=== PATIENT | male | born 1940 | race Caucasian/White ===

== ENCOUNTER → 2023-12-29 14:00 | Outpatient (REF) | payer OTHER, SELFPAY | LOC: HWRAD 14:00 | PROVIDERS: ATTENDING PHYSICIAN Nurse Practitioner Family | DX: M18.10 Unilateral primary osteoarthritis of first carpometacarpal joint, unspecified hand (principal) | CPT/HCPCS: 77080 ==

== ENCOUNTER 2024-03-25 05:14 | Emergency (ER) | payer OTHER, SELFPAY ==
[2024-03-25 05:22] VITALS: BP 146/74
[2024-03-25 05:27] VITALS: BMI 24.2
[2024-03-25 07:03] LABS: Urine Albumin Negative (Neg - Trace); Urine Bilirubin Negative (Negative); Urine Character Clear (Clear); Urine Color Yellow; Urine Glucose Negative (Negative); Urine Ketone Negative (Negative); Urine Leukocyte 1+ (Negative); Urine Nitrite Positive (Negative); Urine Occult Blood Negative (Negative); Urine Urobilinogen Negative (Neg - 1+)
--- NOTE | 2024-03-25 07:05 | ED.GENMED ---
History of Present Illness
General
Chief Complaint: Urinary Symptoms
Time Seen by Provider: 03/25/24 06:24
History of Present Illness
History of Present Illness:
83-year-old male with history of hyperlipidemia and BPH presenting to the emergency department for concern of hematuria. Patient reports at 4 AM this morning he urinated, and at the end of his stream noticed blood. Reports history of urinary tract
infections in the past and has had hematuria in the past, however felt that this incident was more than usual. He is not on any blood thinners. He denies any associated pain or back pain. Denies chest pain or difficulty breathing. Denies recent
fever or illness. Denies additional acute medical complaints
Phy Exam
Physical Exam
Physical Exam:
General: Well-appearing, no clinical signs of dehydration, nontoxic and in no acute distress
HEENT: protecting airway
Neck: appears supple
CV: Normal heart rate, regular rhythm
Resp: No accessory muscle use, no increased work of breathing, lungs clear to auscultation bilaterally
Abd: Soft and non-distended, no tenderness to palpation
Extremities: No deformities, no swelling
Neuro: alert, no focal neurologic deficit
: deferred
Rectal: deferred
Psych: Normal affect
Skin: Intact
Course
Orders/Labs/Results
Orders:
Orders
03/25/24 05:38
Urinalysis Reflex To Culture Urgent
Date Specimen was Collected: 03/25/24
Time Specimen was Collected: 05:36
Urine Microscopic Reflex Cult Urgent
Urine Culture Urgent
ANTHONY Source: U
Specimen Description:
Date Specimen was Collected: 03/25/24
Time Specimen was Collected: 05:36
03/25/24 07:21
Cephalexin Monohydrate [Keflex] 500 mg PO NOW STA
Abnormal Lab Results
03/25/24
05:38
Urine Nitrite (Reflex) Positive A
(Negative)
Leukocyte Esterase Rfl 1+ A
(Negative)
Vital Signs
Initial and Last Documented VS:
Initial Vital Signs
Temp Pulse Resp BP Pulse Ox
97.5 F 74 20 146/74 97
03/25/24 05:22 03/25/24 05:22 03/25/24 05:22 03/25/24 05:22 03/25/24 05:22
Last Documented Vital Signs
Temp Pulse Resp BP Pulse Ox
97.5 F 74 20 146/74 97
03/25/24 05:22 03/25/24 05:22 03/25/24 05:22 03/25/24 05:22 03/25/24 05:22
MDM/Problems Addressed
MDM/Problems Addressed:
83-year-old male with history of hyperlipidemia presenting for concern of hematuria. Vital signs on arrival are normal.
On exam patient is well-appearing, no acute distress or discomfort. Overall benign examination, no tenderness to the abdomen or back. Patient has history of UTI, suspect possible developing UTI. At this time, without concern for severe hematuria.
Patient reports that he urinated here, without additional episode of hematuria. He is not on any anticoagulation. Without concern for kidney stone, no pain. Will send urinalysis and continue to closely monitor.
07:20 -patient's urine is consistent with urinary tract infection, has nitrites. At this time patient remains hemodynamically stable. Will start patient on antibiotics. Otherwise feel stable for discharge with outpatient primary care follow-up.
Return precautions discussed with patient verbalized understanding
*Critical Care Note
Total Time (30-74mins, 75-104mins- exclusive of procedures): Not Applicable
ED Attending Note
-
Portions of this chart may have been created with voice recognition software.� Occasional wrong word or��sound alike� substitutions may have occurred due to the inherent limitations of voice recognition software.
Discharge Plan
Departure
Prescriptions:
No Action
tamsulosin 0.4 mg Capsule
0.4 mg PO DAILY
rosuvastatin 5 mg Tablet
5 mg PO DAILY
Prostate Formula Tablet
1 tab PO BID
coQ10 (ubiquinol) 200 mg Capsule
200 mg PO DAILY
testosterone 1.62 % (20.25 mg/1.25 gram) Gel In Packet
20.25 mg topical DAILY
aspirin 81 mg Capsule
81 mg PO DAILY
Referrals:
Orin Shin NP [Family Provider] -
Interventions
Interventions:
*Risk Screen - Suicide Last Done: 03/25/24 05:15
*General Assessment Last Done: 03/25/24 05:27
*Neglect/Abuse Screening Last Done: 03/25/24 05:15
*ED COVID-19 Vaccine History Last Done: 03/25/24 05:27
ED-Male Genitourinary Assessment Last Done: 03/25/24 05:28
Discharge Date and Time
Print Language: YAKUT
[2024-03-25 07:25] LABS: Urine Red Blood Cell None Seen /HPF (0-2)
[2024-03-25 07:26] LABS: Urine Bacteria Moderate (Negative)
[2024-03-25] MEDS: KEFLEX 500 MG PO (07:26)
[2024-03-25 07:31] VITALS: BP 133/60
== END 2024-03-25 07:52 | disposition home or self-care (01) ==
LOC: EMR 05:14
PROVIDERS: Emergency Medicine; EMERGENCY PHYSICIAN Student in an Organized Health Care Education/Training Program; FAMILY PHYSICIAN Nurse Practitioner Family
DX: N39.0 Urinary tract infection, site not specified (principal); E78.5 Hyperlipidemia, unspecified; N40.0 Benign prostatic hyperplasia without lower urinary tract symptoms
CPT/HCPCS: 99283; 81003; 81015; 87086

== ENCOUNTER 2024-04-08 18:14 | Emergency (ER) | payer OTHER, SELFPAY ==
[2024-04-08 18:16] VITALS: BP 139/65
[2024-04-08 18:50] VITALS: BP 130/54
[2024-04-08 18:58] VITALS: BP 145/51
[2024-04-08 19:00] VITALS: BP 126/72
[2024-04-08 19:06] LABS: Hematocrit 37.5 % (39.0-52.0); Hemoglobin 13.1 g/dL (13.0-18.0); Mean Corp Hgb Conc. 34.9 g/dL (33.0-37.0); Mean Corpuscular Hgb 31.6 pg (27.0-31.0); Mean Corpuscular Volume 90.6 fL (80.0-94.0); Mean Platelet Volume 11.6 fL (7.4-10.4); Platelet Count 188 10^3/uL (130-400); Red Blood Cell Count 4.14 10^6/uL (4.70-6.10); Red Cell Dist. Width 13.3 % (11.5-14.5); White Blood Cell Count 5.5 10^3/uL (4.8-10.8)
--- NOTE | 2024-04-08 19:12 | ED.GENMED ---
History of Present Illness
General
Chief Complaint: Heart Rate Problem
Source: patient and spouse
Time Seen by Provider: 04/08/24 18:25
History of Present Illness
History of Present Illness:
83-year-old male presents the emergency department after getting alert from his watch that his heart rate was elevated at about 137. This lasted about 10 minutes and then resolved completely. Interestingly, he was asymptomatic at the time with the
exception of mild diaphoresis. He denies any chest pain or pressure, dyspnea, nausea, vomiting, headache, dizziness, back pain, neck pain, abdominal pain, or other complaints throughout the day except he notes a few episodes today where he felt
like his chest was 'buzzing' for a few seconds at a time. He is never experienced this before. Patient is now asymptomatic.
Past History
Past History
ED Past Medical History: Hypercholesterolemia
Social History
Tobacco: Former smoker
Alcohol: None
Drug: None
Personal:
Living: with family
Phy Exam
Physical Exam
Physical Exam:
GENERAL: Alert , in no apparent distress
EYE: pupils equal and reactive
NECK: Supple, no significant adenopathy.
ENT: o/p clr, mmm.
CARDIAC: Regular rate and rhythm .
LUNGS: Clear breath sounds bilaterally, no acute respiratory distress, no wheezes/rales/rhonchi
ABDOMEN: Soft, without focal tenderness, no r/g, no cvat
NEUROLOGICAL: Alert and oriented, no focal neuro deficits
SKIN: Warm and dry, skin intact.
MUSCULOSKELETAL: No edema, well perfused.
PSYCH: Normal and appropriate interaction.
Course
Orders/Labs/Results
Orders:
Orders
04/08/24 18:15
EKG [Electrocardiogram (*1)] Urgent
Reason for Study: Chest Pain
EKG- Treatment ONCE
04/08/24 19:00
Complete Blood Count/No Diff Urgent
Comprehensive Metabolic Panel Urgent
TSH Urgent
Troponin I Urgent
Abnormal Lab Results
04/08/24
19:00
RBC 4.14 L 10^6/uL
(4.70-6.10)
Hct 37.5 L %
(39.0-52.0)
MCH 31.6 H pg
(27.0-31.0)
MPV 11.6 H fL
(7.4-10.4)
BUN 30 H mg/dl
(9-20)
TSH 5.28 H uIU/ml
(0.47-4.68)
04/08/24 19:00
04/08/24 19:00
Vital Signs
Initial and Last Documented VS:
Initial Vital Signs
Temp Pulse Resp BP Pulse Ox
98.2 F 73 18 139/65 96
04/08/24 18:16 04/08/24 18:16 04/08/24 18:16 04/08/24 18:16 04/08/24 18:16
Last Documented Vital Signs
Temp Pulse Resp BP Pulse Ox
98.2 F 59 14 112/47 97
04/08/24 18:16 04/08/24 20:45 04/08/24 20:45 04/08/24 20:00 04/08/24 20:45
*Critical Care Note
Total Time (30-74mins, 75-104mins- exclusive of procedures): Not Applicable
Update Note
Update Note:
Patient presents to the Emergency Department with elevated heart rate as per watch____
Number and Complexity of Problems Addressed at the Encounter
� Chronic conditions affecting care:
� Acute Exacerbation and/or Progression of Chronic Illness:
� Differential Diagnosis includes: But not limited to sinus tachycardia, SVT, A-fib, a flutter, etc. etc.
Amount and/or Complexity of Data to be Reviewed and Analyzed
� I performed an independent evaluation of and my interpretation is:
EKG: Read by me, normal sinus rhythm, left bundle branch block which is old, no acute ischemia and
CT:
Xrays:
Laboratory Studies:
Generally unremarkable, TSH noted to be slightly elevated which I suspect is not related to his symptoms but patient made aware
Other:
� Review of other/old records reveals:
� Clinical information was obtained by an independent historian: who is bedside
� Prescriptions/Medications Considered but not given:
� Further testing considered but not performed:
Risk of Complications and/or Morbidity or Mortality of Patient Management
� Social determinants of health affecting care:
� Discussion with other providers (PCP, Hospitalists, Consultants, etc):
� Escalation of care including admission/observation vs risk of discharge considered: 9:07 PM patient remains asymptomatic here, no tachycardia or other abnormalities noted on telemetry. Patient will be discharged home with
instructions for close follow-up with cardiology will likely need to monitor.
ED Attending Note
-
Portions of this chart may have been created with voice recognition software.� Occasional wrong word or��sound alike� substitutions may have occurred due to the inherent limitations of voice recognition software.
Discharge Plan
Departure
Patient Disposition: Home (Routine Discharge)
Date of Disposition: 04/08/24
Time of Disposition: 21:04
Patient with high blood pressure during this ER visit?: Yes
Condition: Good
Discharge Problem:
Tachycardia
Instructions: Tachycardia, BLOOD PRESSURE
Prescriptions:
No Action
tamsulosin 0.4 mg Capsule
0.4 mg PO DAILY
rosuvastatin 5 mg Tablet
5 mg PO DAILY
Prostate Formula Tablet
1 tab PO BID
coQ10 (ubiquinol) 200 mg Capsule
200 mg PO DAILY
testosterone 1.62 % (20.25 mg/1.25 gram) Gel In Packet
20.25 mg topical DAILY
aspirin 81 mg Capsule
81 mg PO DAILY
cephalexin 500 mg capsule
500 mg PO BID 7 Days Qty: 14 0RF
Referrals:
Orin Shin NP [Family Provider] -
Ashlyn Napier DO [Active] - Next open appointment
Activity Restrictions/Additional Instructions:
IF YOU DEVELOP CHEST PAIN, TROUBLE BREATHING, DIZZINESS, PALPITATIONS, OR OTHER WORRISOME SIGNS, GO TO THE ER IMMEDIATELY!
Interventions
Interventions:
*Risk Screen - Suicide Last Done: 04/08/24 18:16
*Neglect/Abuse Screening Last Done: 04/08/24 18:16
ED- Fall Risk Assessment Last Done: 04/08/24 19:05
ED- Cardiac Assessment Last Done: 04/08/24 19:05
ED- Pulmonary Assessment Last Done: 04/08/24 19:05
Discharge Date and Time
Print Language: URDU
[2024-04-08 19:20] LABS: ALT (SGPT) 24 U/L (0-50); AST (SGOT) 28 U/L (17-59); Albumin 3.7 g/dl (3.5-5.0); Alkaline Phosphatase 52 U/L (38-126); Blood Urea Nitrogen 30 mg/dl (9-20); Calcium 9.1 mg/dl (8.4-10.2); Carbon Dioxide 30 mmol/L (22-30); Chloride 104 mmol/L (98-107); Glucose 87 mg/dl (70-99); Potassium 4.5 mmol/L (3.5-5.1); Sodium 142 mmol/L (135-145); Total Bilirubin 0.6 mg/dl (0.2-1.3); Total Protein 6.3 g/dl (6.3-8.2); eGFR > 60.00
[2024-04-08 19:39] LABS: Troponin I < 0.012 ng/ml
[2024-04-08 19:51] LABS: TSH 5.28 uIU/ml (0.47-4.68)
[2024-04-08 20:00] VITALS: BP 112/47
== END 2024-04-08 21:11 | disposition home or self-care (01) ==
LOC: EMR 18:14
PROVIDERS: EMERGENCY PHYSICIAN Emergency Medicine; FAMILY PHYSICIAN Nurse Practitioner Family
DX: R00.0 Tachycardia, unspecified (principal); E78.00 Pure hypercholesterolemia, unspecified; Z87.891 Personal history of nicotine dependence; I44.7 Left bundle-branch block, unspecified
CPT/HCPCS: 99284; 80053; 84443; 84484; 85027; 93005

== ENCOUNTER 2024-04-12 21:04 | Emergency (ER) | payer OTHER, SELFPAY ==
[2024-04-12 21:07] VITALS: BP 149/64
[2024-04-12 21:19] VITALS: BMI 23.9
[2024-04-12 21:44] LABS: Urine Albumin Trace (Neg - Trace); Urine Bilirubin Negative (Negative); Urine Character Slightly Cloudy (Clear); Urine Color Yellow; Urine Glucose Negative (Negative); Urine Ketone Negative (Negative); Urine Leukocyte 2+ (Negative); Urine Nitrite Positive (Negative); Urine Occult Blood 4+ (Negative); Urine Urobilinogen Negative (Neg - 1+)
[2024-04-12 22:00] LABS: Urine Bacteria Few (Negative); Urine Red Blood Cell 30-40 /HPF (0-2); Urine White Cell 50-60 /HPF (0-5)
--- NOTE | 2024-04-12 22:13 | ED.GENMED ---
History of Present Illness
General
Chief Complaint: Urinary Symptoms
Source: patient
Exam Limitations: none
Time Seen by Provider: 04/12/24 21:22
Nursing documentation reviewed up to this point in time: agreed with
History of Present Illness
History of Present Illness:
Patient presents ED secondary to recurrent hematuria, along with passage of small blood clots this evening. Denies difficulty voiding or inability to void. Denies fever or chills. Denies nausea or vomiting. Denies abdominal pain. Patient was
evaluated in ED for similar complaint 2 weeks ago, and successfully treated with antibiotics. Of note, patient has had history of enlarged prostate, noted on MRI obtained 2 years ago.
Past History
Past History
ED Past Medical History: Hypercholesterolemia
Social History
Tobacco: Former smoker
Alcohol: None
Drug: None
Personal:
Living: with family
Review of Systems
Review of Systems
Allergies reviewed?: Yes
All Other Systems: ROS reviewed and negative except as documented in HPI and ROS
Constitutional: Reports no symptoms; Denies fever
ABD/GI: Reports no symptoms; Denies abdominal pain, nausea or vomiting
: Reports bleeding; Denies dysuria, frequency, flank pain or difficulty voiding
Musculoskeletal: Reports no symptoms
Skin: Reports no symptoms
Neurological: Reports no symptoms
Phy Exam
Physical Exam
Physical Exam:
Physical Exam
General: no apparent distress, not acutely ill. afebrile
Head: nc/at. eomi
Neck: supple. no meningeal signs.
Abdomen: normal bowel sounds. not tender.
Neuro: alert and oriented. no focal neurological deficits
Skin: no rash
Psychiatric: well kept. interactive and cooperative
Extremities: no edema. no calf tenderness.
Course
Orders/Labs/Results
Orders:
Orders
04/12/24 21:37
Urinalysis Reflex To Culture Urgent
Date Specimen was Collected: 04/12/24
Time Specimen was Collected: 21:11
Urine Microscopic Reflex Cult Urgent
Urine Culture Urgent
ANTHONY Source: U
Specimen Description:
Date Specimen was Collected: 04/12/24
Time Specimen was Collected: 21:11
04/12/24 22:13
LevoFLOXacin [Levaquin] 500 mg PO NOW STA
Abnormal Lab Results
04/12/24
21:37
Ur Occult Blood Reflex 4+ A
(Negative)
Urine Nitrite (Reflex) Positive A
(Negative)
Leukocyte Esterase Rfl 2+ A
(Negative)
Urine RBC 30-40 A /HPF
(0-2)
Urine WBC (Reflex) 50-60 A /HPF
(0-5)
Urine Bacteria (Reflex) Few A
(Negative)
Vital Signs
Initial and Last Documented VS:
Initial Vital Signs
Temp Pulse Resp BP Pulse Ox
98.4 F 64 17 149/64 96
04/12/24 21:07 04/12/24 21:07 04/12/24 21:07 04/12/24 21:07 04/12/24 21:07
Last Documented Vital Signs
Temp Pulse Resp BP Pulse Ox
98.4 F 64 17 149/64 96
04/12/24 21:07 04/12/24 21:07 04/12/24 21:07 04/12/24 21:07 04/12/24 21:07
MDM/Problems Addressed
MDM/Problems Addressed:
MRI pelvis report from 2021 reviewed, significant for enlarged prostate. Per patient, he is scheduled for repeat MRI next month, as ordered by his urologist,
History, exam, and urinalysis consistent with likely prostatitis. Patient will be started on Cipro, with recommendation to call his primary urologist tomorrow morning for reevaluation.
Urine culture pending. Patient is otherwise afebrile, hemodynamically stable, voiding freely, and is without any acute distress, at time of discharge, to the care of his spouse.
*Critical Care Note
Total Time (30-74mins, 75-104mins- exclusive of procedures): Not Applicable
ED Attending Note
-
Portions of this chart may have been created with voice recognition software.� Occasional wrong word or��sound alike� substitutions may have occurred due to the inherent limitations of voice recognition software.
Discharge Plan
Departure
Patient Disposition: Home (Routine Discharge)
Date of Disposition: 04/12/24
Time of Disposition: 22:14
Patient with high blood pressure during this ER visit?: Yes
Condition: Good
Discharge Problem:
Prostatitis
Instructions: Prostatitis (DC)
Prescriptions:
New
ciprofloxacin HCl 500 mg tablet
500 mg PO BID Qty: 8 0RF
No Action
tamsulosin 0.4 mg Capsule
0.4 mg PO DAILY
rosuvastatin 5 mg Tablet
5 mg PO DAILY
Prostate Formula Tablet
1 tab PO BID
coQ10 (ubiquinol) 200 mg Capsule
200 mg PO DAILY
testosterone 1.62 % (20.25 mg/1.25 gram) Gel In Packet
20.25 mg topical DAILY
aspirin 81 mg Capsule
81 mg PO DAILY
cephalexin 500 mg capsule
500 mg PO BID 7 Days Qty: 14 0RF
Referrals:
Thomas Mae MD [Active] -
Orin Shin NP [Family Provider] -
Activity Restrictions/Additional Instructions:
As discussed, please follow-up with your urologist for further evaluation and treatment. Your prescription has been sent electronically to [facility] in [place].
Interventions
Interventions:
*Risk Screen - Suicide Last Done: 04/12/24 21:08
*General Assessment Last Done: 04/12/24 21:07
*Neglect/Abuse Screening Last Done: 04/12/24 21:07
ED- Fall Risk Assessment Last Done: 04/12/24 21:19
*ED COVID-19 Vaccine History Last Done: 04/12/24 21:19
*Nursing Disposition Last Done: 04/12/24 22:20
ED-Male Genitourinary Assessment Last Done: 04/12/24 21:40
Discharge Date and Time
Discharge Date/Time: 04/12/24 22:20
Print Language: MONGOLIAN
[2024-04-12] MEDS: LEVAQUIN 500 MG PO (22:17)
== END 2024-04-12 22:20 | disposition home or self-care (01) ==
LOC: EMR 21:04
PROVIDERS: EMERGENCY PHYSICIAN Emergency Medicine; FAMILY PHYSICIAN Nurse Practitioner Family
DX: N41.9 Inflammatory disease of prostate, unspecified (principal); N40.0 Benign prostatic hyperplasia without lower urinary tract symptoms; E78.00 Pure hypercholesterolemia, unspecified; Z87.891 Personal history of nicotine dependence
CPT/HCPCS: 99282; 81003; 81015; 87086

== ENCOUNTER → 2024-05-09 19:30 | Outpatient (REF) | payer OTHER, SELFPAY | LOC: MRI 3T 19:30 | PROVIDERS: ATTENDING PHYSICIAN Surgery; FAMILY PHYSICIAN Nurse Practitioner Family | DX: R97.20 Elevated prostate specific antigen [PSA] (principal) | CPT/HCPCS: 72197; A9575 ==

== ENCOUNTER → 2024-06-04 14:49 | Outpatient (REF) | payer OTHER, SELFPAY | LOC: HWRCS 14:49 | PROVIDERS: ATTENDING PHYSICIAN Physician Assistant Medical; FAMILY PHYSICIAN Nurse Practitioner Family | DX: I48.0 Paroxysmal atrial fibrillation (principal) | CPT/HCPCS: 93306 ==

== ENCOUNTER → 2024-07-30 12:22 | Outpatient (REF) | payer OTHER, SELFPAY | LOC: HWRAD 12:22 | PROVIDERS: ATTENDING PHYSICIAN Family Medicine | DX: R05.2 Subacute cough (principal) | CPT/HCPCS: 71046 ==

== ENCOUNTER 2024-07-30 18:42 | Emergency (ER) | payer OTHER, SELFPAY ==
[2024-07-30 18:49] VITALS: BP 127/52
[2024-07-30 19:11] LABS: % Basophils 0.2 % (0-2); % Eosinophils 1.4 % (0-6); % Lymphocytes 30.2 % (20.5-51.1); % Monocytes 8.6 % (1.7-9.3); % Neutrophils 59.6 % (42.2-75.2); Absolute Eosinophils 0.1 10^3/uL (0-0.7); Absolute Lymphocytes 1.3 10^3/uL (1.2-3.4); Absolute Monocytes 0.4 10^3/uL (0.1-0.6); Absolute Neutrophils 2.6 10^3/uL (1.4-6.5); Hematocrit 38.4 % (39.0-52.0); Hemoglobin 12.7 g/dL (13.0-18.0); Mean Corp Hgb Conc. 33.1 g/dL (33.0-37.0); Mean Corpuscular Hgb 31.1 pg (27.0-31.0); Mean Corpuscular Volume 94.1 fL (80.0-94.0); Mean Platelet Volume 12.2 fL (7.4-10.4); Nucleated Red Blood Cells % 0 % (-); Platelet Count 133 10^3/uL (130-400); Red Blood Cell Count 4.08 10^6/uL (4.70-6.10); Red Cell Dist. Width 13.2 % (11.5-14.5); White Blood Cell Count 4.4 10^3/uL (4.8-10.8)
[2024-07-30 19:34] LABS: Troponin I 0.019 ng/ml
[2024-07-30 19:40] LABS: ALT (SGPT) 27 U/L (0-50); AST (SGOT) 33 U/L (17-59); Albumin 3.8 g/dl (3.5-5.0); Alkaline Phosphatase 72 U/L (38-126); Blood Urea Nitrogen 23 mg/dl (9-20); Calcium 8.9 mg/dl (8.4-10.2); Carbon Dioxide 27 mmol/L (22-30); Chloride 103 mmol/L (98-107); Glucose 124 mg/dl (70-99); Potassium 4.2 mmol/L (3.5-5.1); Sodium 138 mmol/L (135-145); Total Protein 6.4 g/dl (6.3-8.2); eGFR > 60.00
[2024-07-30 20:51] VITALS: BP 116/49
[2024-07-30 21:00] VITALS: BP 111/48
--- NOTE | 2024-07-30 21:22 | ED.GENMED ---
History of Present Illness
General
Chief Complaint: Heart Rate Problem
Source: patient and family
Exam Limitations: none
Time Seen by Provider: 07/30/24 20:46
Nursing documentation reviewed up to this point in time: agreed with
History of Present Illness
History of Present Illness:
Patient is a very pleasant 84-year-old man with a past medical history of atrial fibrillation on Eliquis who takes 25 mg of metoprolol extended release each morning. Patient reports that at around 4:45 AM this morning, his watch alarmed that his
heart rate was elevated. Patient reports his heart rate was in the 120s, however, he denied having any symptoms and was able to fall back to sleep. Patient reports that once again his watch alarmed at around 6:30pm that his heart rate was in the
120s. Patient, once again, reports he had absolutely no shortness of breath, palpitations, dizziness or any other symptoms. Patient reports he took 25 mg of metoprolol which did not seem to help the heart rate. He then took a second 25 mg tablet
of metoprolol before he got to the ED. Patient reports that since getting to the ED, his heart rate has now dropped into the 50s to 60s. Patient now appears to be in a normal sinus rhythm. He still has absolutely no symptoms and states he feels
well and is happy to go home.
Past History
Past History
ED Past Medical History: Arrthythmia and Hypercholesterolemia
ED Past Surgical History: Other
Social History
Tobacco: Former smoker
Alcohol: None
Drug: None
Personal:
Living: with family
Employment: Other
Family History
Family History: Other
Review of Systems
Review of Systems
Allergies reviewed?: Yes
All Other Systems: ROS reviewed and negative except as documented in HPI and ROS
Constitutional: Reports no symptoms
EENT: Reports no symptoms
Respiratory: Reports cough (Mild cough for several weeks)
Cardiac: Reports no symptoms
ABD/GI: Reports no symptoms
: Reports no symptoms
Musculoskeletal: Reports no symptoms
Skin: Reports no symptoms
Neurological: Reports no symptoms
Endocrine: Reports no symptoms
Hematologic/Lymphatic: Reports no symptoms
Psychiatric: Reports no symptoms
Phy Exam
Physical Exam
Physical Exam:
Physical Exam
General: no apparent distress, not acutely ill. Smiling, conversational
Neck: supple. no meningeal signs. normal psoterior pharynx
Heart: s1/s2 regular rate and rhythm,
Lungs: no acute respiratory distress. clear bilaterally
Abdomen: normal bowel sounds. not tender. no CVAT
Neuro: alert and oriented. no focal neurological deficits
Skin: no rash
Psychiatric: well kept. interactive and cooperative
Extremities: no edema. no calf tenderness. negative homans. good distal pulses
Course
Orders/Labs/Results
Orders:
Orders
07/30/24 18:43
Electrocardiogram (*1) Urgent
Reason for Study: Tachycardia
EKG- Treatment ONCE
07/30/24 19:04
Complete Blood Count/With Diff Urgent
Comprehensive Metabolic Panel Urgent
Troponin I Urgent
07/30/24 21:28
Electrocardiogram (*1) Urgent
Reason for Study: Tachycardia
EKG- Treatment ONCE
Abnormal Lab Results
07/30/24
19:04
WBC 4.4 L 10^3/uL
(4.8-10.8)
RBC 4.08 L 10^6/uL
(4.70-6.10)
Hgb 12.7 L g/dL
(13.0-18.0)
Hct 38.4 L %
(39.0-52.0)
MCV 94.1 H fL
(80.0-94.0)
MCH 31.1 H pg
(27.0-31.0)
MPV 12.2 H fL
(7.4-10.4)
BUN 23 H mg/dl
(9-20)
Glucose 124 H mg/dl
(70-99)
07/30/24 19:04
07/30/24 19:04
Vital Signs
Initial and Last Documented VS:
Initial Vital Signs
Temp Pulse Resp BP Pulse Ox
98.3 F 67 16 127/52 98
07/30/24 18:49 07/30/24 18:49 07/30/24 18:49 07/30/24 18:49 07/30/24 18:49
Last Documented Vital Signs
Temp Pulse Resp BP Pulse Ox
98.3 F 61 12 115/55 96
07/30/24 18:49 07/30/24 22:00 07/30/24 22:00 07/30/24 22:00 07/30/24 22:00
MDM/Problems Addressed
Differential Diagnosis Includes:
A-fib with RVR, sinus tachycardia, PACs
MDM/Problems Addressed:
Patient presents with complaints of earlier rapid heart rate
Chronic conditions affecting care: Arrhythmia
Acute Exacerbation and/or Progression of Chronic Illness:
Patient may have had an acute exacerbation of chronic A-fib
*Pulse Oximetry
Patient hypoxic: no
*EKG
Interpreted by ED Provider?: Yes
Interpretation: abnormal
Comparison EKG: no changes
Rate: normal
Rhythm: sinus
[place]: left axis deviation
Interval: normal interval
QRS Pattern: left bundle branch block
Ischemia: non-specific ST changes
*Oyster Farmer Interpretation
Rate: normal
Interpretation: normal
Rhythm: sinus
*Critical Care Note
Total Time (30-74mins, 75-104mins- exclusive of procedures): Not Applicable
Data Reviewed
Review of Other/Old Records Reveals: Testing (No significant abnormality seen on cardiac echo from 2022)
Source: patient and family
Patient Management
Social determinants of health affecting care: Living situation and Strong social support
Discussion with other providers: Other (Case discussed with Dr. Magdaleno Loya who feels patient could safely go home if he feels comfortable and well and follow-up with cardiology in the office tomorrow morning)
Update Note
Update Note:
Patient remains in a normal sinus rhythm for several hours in the ED. Unfortunately, at around 9:30 PM, patient's heart rate mary to above 100. Repeat EKG ordered.
Patient's second EKG shows a wide-complex tachycardia with a heart rate of 118 with a left axis deviation and a left bundle branch block with nonspecific ST changes. Patient still having absolutely no symptoms.
Patient is frequently flip-flopping between a heart rate in the upper 50s to low 60s-then to a heart rate in the 110s-and then back once again to the upper 50s to low 60s.
Case discussed with Dr. Magdaleno Loya who feels that patient can go home if he feels well and comfortable and follow-up with cardiology in the office tomorrow for monitoring. Patient is very comfortable this plan. He reports he did rather go home.
I did offer him admission to the hospital if he feels uncomfortable but he feels well and is happy to go home and see cardiology in the morning
ED Attending Note
-
Portions of this chart may have been created with voice recognition software.� Occasional wrong word or��sound alike� substitutions may have occurred due to the inherent limitations of voice recognition software.
Discharge Plan
Departure
Patient with high blood pressure during this ER visit?: Yes
Condition: Good
Covid-19: Not Applicable
Discharge Problem:
Palpitations
Instructions: Atrial Fibrillation (DC), Palpitations (DC)
Prescriptions:
No Action
tamsulosin 0.4 mg Capsule
0.4 mg PO DAILY
rosuvastatin 5 mg Tablet
5 mg PO DAILY
metoprolol succinate 25 mg Tablet Extended Release 24 Hr
25 mg PO DAILY
testosterone 20.25 mg/1.25 gram (1.62 %) gel in metered-dose pump
3 pump topical DAILY
Xarelto 20 mg Tablet
20 mg PO DAILY
Referrals:
Ashlyn Napier, DO [Active] - (See tomorrow in the office)
Activity Restrictions/Additional Instructions:
Come back to the emergency department if you develop symptoms such as chest pain or shortness of breath. If you are feeling well, you can safely follow-up with cardiology tomorrow in the office. If you do not hear from the cardiology office by 10
AM, please give them a call
Interventions
Interventions:
*Risk Screen - Suicide Last Done: 07/30/24 18:49
*General Assessment Last Done: 07/30/24 21:44
*Neglect/Abuse Screening Last Done: 07/30/24 18:49
*ED COVID-19 Vaccine History Last Done: 07/30/24 21:44
ED- Cardiac Assessment Last Done: 07/30/24 21:44
ED- Pulmonary Assessment Last Done: 07/30/24 21:44
Discharge Date and Time
Print Language: [place]
[2024-07-30 21:44] VITALS: BMI 23.8
[2024-07-30 21:53] VITALS: BP 97/51
[2024-07-30 22:00] VITALS: BP 115/55
== END 2024-07-30 22:31 | disposition home or self-care (01) ==
LOC: EMR 18:42
PROVIDERS: Emergency Medicine; EMERGENCY PHYSICIAN Emergency Medicine; FAMILY PHYSICIAN Nurse Practitioner Family
DX: R00.2 Palpitations (principal); I48.91 Unspecified atrial fibrillation; R03.0 Elevated blood-pressure reading, without diagnosis of hypertension; Z79.01 Long term (current) use of anticoagulants; Z87.891 Personal history of nicotine dependence
CPT/HCPCS: 99284; 80053; 84484; 85025; 93005

== ENCOUNTER → 2024-11-08 15:03 | Outpatient (REF) | payer OTHER, SELFPAY | LOC: DHSLP 15:03 | PROVIDERS: ATTENDING PHYSICIAN Internal Medicine; FAMILY PHYSICIAN Nurse Practitioner Family | DX: G47.33 Obstructive sleep apnea (adult) (pediatric) (principal) | CPT/HCPCS: 95800 ==

== ENCOUNTER → 2024-11-27 14:12 | Outpatient (REF) | payer OTHER, SELFPAY | LOC: HWRAD 14:12 | PROVIDERS: ATTENDING PHYSICIAN Nurse Practitioner Family | DX: E04.1 Nontoxic single thyroid nodule (principal); E03.9 Hypothyroidism, unspecified | CPT/HCPCS: 76536 ==